=== PATIENT | male | born 1955 ===

== ENCOUNTER 2024-11-04 17:49 | Outpatient (REF) | payer MEDICARE, SELFPAY ==
[2024-11-04 18:41] LABS: Abs Immature Grans 0.02 10^3/uL (0.0-0.06); HCT 35.2 % (40.0-50.0); HGB 11.7 g/dL (13.5-17.5); Immature Grans % 0.3 %; MCH 31.1 pg (27.0-33.0); MCHC 33.2 % (32.0-36.0); MCV 94 fL (80-95); MPV 10.3 fL (8.0-11.0); Platelet Count 243 10^3/uL (130-400); RBC 3.76 10^6/uL (4.36-5.78); RDW 15.4 % (11.8-14.1); RDW-SD 53.1 fL; WBC 7.49 10^3/uL (4.4-10.8)
[2024-11-04 18:50] LABS: ALT 22 U/L (16-63); AST 16 U/L (15-37); Albumin 3.4 g/dL (3.4-5.0); Alkaline Phosphatase 61 U/L (46-116); Anion Gap 10.1 mmol/L (3-11); BUN 22 mg/dL (7-18); Bilirubin, Total 0.5 mg/dL (0.2-1.0); CO2 25.9 mmol/L (21.0-32.0); Calcium 8.9 mg/dL (8.5-10.1); Chloride 103 mmol/L (98-107); Estimated GFR 93.03 (mL/min/1.73m2); Glucose 110 mg/dL (74-106); Potassium 3.7 mmol/L (3.5-5.1); Sodium 139 mmol/L (136-145); Total Protein 6.4 g/dL (6.4-8.2)
[2024-11-04 18:51] LABS: C-Reactive Protein < 0.50 mg/dL (<or=0.5)
== END 2024-11-04 17:50 | disposition home or self-care (01) ==
LOC: LBN 17:49
PROVIDERS: Visit Provider Nurse Practitioner Adult Health
DX: S76.192 Other specified injury of left quadriceps muscle, fascia and tendon (principal)
CPT/HCPCS: 80053; 85025; 86140

== ENCOUNTER 2024-11-21 03:15 | Outpatient (CLI) | payer MEDICARE, SELFPAY ==
--- NOTE | 2024-11-21 | DI.MRI_ITS ---
Exam(s) MR LOWER EXTREMITY LT WO CLINICAL HISTORY: RUPTURE LT QUADRICEPS MISCLE S76.112D TENDON INJURY, ? STATUS OF QUADRICEPS. TECHNIQUE: Multiplanar multisequence MRI was performed. CONTRAST MATERIAL: noncontrast COMPARISON: Plain films October 09 FINDINGS: Exam is somewhat limited by motion. BONES/JOINTS: No fracture or contusion pattern. No bone lesions identified. Small knee joint effusion. Degenerative changes of the patellofemoral joint, greater laterally. MUSCULOTENDINOUS STRUCTURES: No evidence of quadriceps tendon tear. Some adjacent postsurgical artifact. Extensive without evidence of focal drainable collection. Edema within the vastus lateralis muscle SOFT TISSUES: Midline anterior scar without significant associated edema. Small Vela's cyst. Mild diffuse subcutaneous edema. IMPRESSION: No evidence of quadriceps tendon tear. Edema in the vastus lateralis muscle without evidence of drainable collection. DATA REPOSITORY:
== END 2024-11-21 03:35 ==
PROVIDERS: Visit Provider Orthopaedic Surgery
DX: S76.112D Strain of left quadriceps muscle, fascia and tendon, subsequent encounter (principal); X58.XXXD Exposure to other specified factors, subsequent encounter
CPT/HCPCS: 73718